=== PATIENT | female | born 1950 | race Caucasian/White ===

== ENCOUNTER → 2019-04-09 | Outpatient (CLI) | payer MEDICARE ==
--- NOTE | 2019-04-10 08:15 | RAD ---
EXAM: Dual energy x-ray absorptiometry (DEXA). HISTORY: History of anticonvulsant use, 68-year-old postmenopausal female. COMPARISON: None available. TECHNIQUE: Dual energy x-ray absorptiometry of the lumbar spine and right hip was performed. Calculation of bone mineral density based on standard deviations above or below the expected young adult normal value (T-score) was completed. FINDINGS: The average bone mineral density in the 1st through 4th lumbar vertebrae is 1.187 g/cmxcm, corresponding with a T-score of 0.1. The average total bone mineral density in the right hip is 1.062 g/cmxcm, corresponding with a T-score of 0.9. IMPRESSION: Normal bone mineral density with relation to the spine and right hip. Note: Definitions established by the World Health Organization: 1. Normal: T-score is -1.0 or above. 2. Osteopenia: T-score is between -1.0 and -2.5 . 3. Osteoporosis: T-score is -2.5 or below. Electronically signed by: Jada Chapa MD (04/10/2019 8:12 AM) [id number]
== END | disposition home or self-care (01) ==
LOC: DXRAD 13:38
PROVIDERS: ATTEND Specialist
DX: Z13.820 Encounter for screening for osteoporosis (principal); Z78.0 Asymptomatic menopausal state
CPT/HCPCS: 77080

== ENCOUNTER → 2021-06-22 | Outpatient (CLI) | payer MEDICARE, MEDICAID ==
--- NOTE | 2021-06-22 15:38 | RAD ---
EXAM: CT CHEST WITHOUT CONTRAST (LDCT LUNG CANCER SCREENING) 06/22/2021. HISTORY: Risk factors for pulmonary malignancy. Nicotine dependence. 50 pack-year tobacco history. TECHNIQUE: CT of the chest was performed without intravenous contrast using a low-dose lung screening protocol. Findings analysis is based on ACR Lung-RADS v1.1. *One or more of the following individual ized dose reduction techniques were utilized for this examination: 1. Automated exposure control. 2. Adjustment of the mA and/or kV according to patient size. 3. Use of iterative reconstruction technique. RADIATION DOSE: DLP: 70.2 mGy*cm CTDI VOL(per sequence): 2.1 mGy COMPARISON: None. FINDINGS: Heart size within normal limits. Mild ectasia of the ascending thoracic aorta measuring 3.7 cm transv erse. Coronary artery calcifications. No mediastinal, hilar or axillary lymphadenopathy. There are sc attered calcified mediastinal lymph nodes. Thyroid gland is unremarkable. Central airways are patent. There is mild diffuse bronchial wall thickening. Moderate emphysema with biapical scarring. There are a few scattered calcified granuloma mild patchy groundglass opacity bila terally. No consolidation or pleural effusion. No suspicious pulmonary nodule or mass. Images of the upper abdomen are unremarkable. No significant bony abnormality. Multilevel spondylosis . IMPRESSION: 1. No suspicious pulmonary nodule or mass. Recommend follow-up low-dose lung cancer screening study i n one year. Lung RADS category 1. 2. Moderate emphysema. 3. Coronary artery calcification. Electronically signed by: Haroon Benítez MD (06/22/2021 3:36 PM) [facility] [id number]
--- NOTE | 2021-06-22 16:34 | RAD ---
INDICATION: Screening for osteopenia/osteoporosis. Reason: POST MENOPAUSAL / Spl. Instructions: / H istory: COMPARISON: 04/09/2019 TECHNIQUE: Bone densitometry was performed through the lumbar spine and proximal femur. IMPRESSION: Lumbar Spine: BMD: 1.25 T-Score: 0.5 Range: Normal. Increased by 5 percent from prior. Proximal Femur: BMD: 1.03 T-Score: 0.6 Range: Normal. Decreased by 3 percent from prior. World Health Organization Criteria for Bone Density: T-Score: > -1.0: Normal Range < -1.0 to -2.5: Osteopenic Range < -2.5: Osteoporotic Range Electronically signed by: Thompson Neri MD (06/22/2021 4:31 PM) [id number]
== END ==
LOC: DXRAD 13:26
PROVIDERS: ATTEND Specialist
DX: Z12.2 Encounter for screening for malignant neoplasm of respiratory organs (principal); J43.9 Emphysema, unspecified; J98.4 Other disorders of lung; F17.211 Nicotine dependence, cigarettes, in remission; I77.810 Thoracic aortic ectasia; I25.10 Atherosclerotic heart disease of native coronary artery without angina pectoris; Z78.0 Asymptomatic menopausal state
CPT/HCPCS: 71271; 77080